=== PATIENT | female | born 1960 | race Caucasian/White ===

== ENCOUNTER → 2019-09-08 14:15 | Outpatient (BNVA) | payer BC, SELFPAY | PROVIDERS: Family Provider Family Medicine; Visit Provider Obstetrics & Gynecology | DX: Z12.4 Encounter for screening for malignant neoplasm of cervix (principal) | CPT/HCPCS: 88175 ==

== ENCOUNTER 2020-05-04 08:57 | Outpatient (CLI) | payer BC, SELFPAY ==
--- NOTE | 2020-05-04 09:01 | MM_ITS ---
WS: [id number] BILATERAL DIGITAL SCREENING MAMMOGRAPHY WITH CAD CLINICAL INFORMATION: SCREENING HISTORY: Screening mammogram. No current complaints. COMPARISON: TECHNIQUE: Bilateral CC and MLO views. FINDINGS: The breasts are composed of heterogeneous fibroglandular density tissue, which can limit the detectio n of small underlying mass lesions. No suspicious mass, asymmetry, calcifications, or architectural d istortion. No evidence of malignancy. Vascular calcification. Punctate calcification right breast. Ti ny punctate calcifications left breast are similar in appearance. Partially visualized surgical clips right axilla. MM/[id number] IMPRESSION: BI-RADS: 2-Benign FOLLOW UP: 1 Year Follow-up Recommend return to annual screening mammography.
== END 2020-05-04 08:58 | disposition home or self-care (01) ==
LOC: RADSHAW 09:00
PROVIDERS: Family Provider Family Medicine; PCP Family Medicine; Visit Provider Family Medicine
DX: Z12.31 Encounter for screening mammogram for malignant neoplasm of breast (principal)
CPT/HCPCS: 77067

== ENCOUNTER 2021-08-01 09:49 | Outpatient (CLI) | payer BC, SELFPAY ==
--- NOTE | 2021-08-01 09:55 | MM_ITS ---
WS: [id number] BILATERAL SCREENING 3D TOMOSYNTHESIS DIGITAL MAMMOGRAM WITH CAD HISTORY: SCREENING COMPARISON: 05/04/2020, 03/26/2019, 02/18/2018, 09/05/2016 and 09/01/2015 Bilateral CC and MLO views submitted. Computer aided detection analyzed. Breast composition: The breasts are heterogeneously dense, which may obscure small masses. No suspici ous masses, microcalcifications or architectural distortion. There are numerous calcifications within each breast. These calcifications have been present on prior studies with only minimal increase in n umber. Majority of these calcifications have lucent centers suggesting benignity. Biopsy clip in the posterior superior RIGHT breast. There is a stable nodule measuring 7 mm in the central LEFT breast. MM/[id number] IMPRESSION: BI-RADS: 2-Benign FOLLOW UP: 1 Year Follow-up
== END 2021-08-01 09:50 | disposition home or self-care (01) ==
PROVIDERS: Family Provider Family Medicine; PCP Family Medicine; Visit Provider Obstetrics & Gynecology
DX: Z12.31 Encounter for screening mammogram for malignant neoplasm of breast (principal); N63.0 Unspecified lump in unspecified breast
CPT/HCPCS: 77063; 77067

== ENCOUNTER 2022-09-16 07:32 | Outpatient (CLI) | payer BC, SELFPAY ==
--- NOTE | 2022-09-16 07:37 | MM_ITS ---
WS: [id number] BILATERAL SCREENING DIGITAL TOMOSYNTHESIS MAMMOGRAM WITH CAD HISTORY: SCREENING COMPARISON: 09/01/2015, 09/05/2016, 08/01/2021 and 05/04/2020 Bilateral CC and MLO views with tomosynthesis and synthetic mammography submitted. Computer aided det ection analyzed. Breast composition: There are scattered areas of fibroglandular density. No suspicious masses, microc alcifications or architectural distortion. Prior biopsy clips in the posterior central RIGHT breast. There are numerous bilateral calcifications which have been present over multiple years, noted on tonya or examinations from 2017. These calcifications have been relatively stable. There is no one discrete area is more concerning than another. No distortion of the soft tissues. MM/[id number] IMPRESSION: BI-RADS: 2-Benign FOLLOW UP: 1 Year Follow-up There are extensive calcifications within each breast which are relatively stab le. There is no one group of calcifications more concerning than another. Consi dering the patient's family history of breast cancer additional imaging with MR I may be of benefit. Some of these calcifications have been biopsied in the pas t and are negative.
== END 2022-09-16 07:33 | disposition home or self-care (01) ==
PROVIDERS: PCP Family Medicine; Visit Provider Family Medicine
DX: Z12.31 Encounter for screening mammogram for malignant neoplasm of breast (principal)
CPT/HCPCS: 77063; 77067

== ENCOUNTER 2023-09-25 07:53 | Outpatient (CLI) | payer BC, SELFPAY ==
--- NOTE | 2023-09-25 08:01 | MM_ITS ---
WS: [id number] SCREENING DIGITAL BREAST TOMOSYNTHESIS MAMMOGRAM WITH CAD HISTORY: SCREENING COMPARISON: 04/16/2013, 04/20/2014, 09/16/2022, 08/01/2021 Bilateral CC and MLO with tomosynthesis and synthetic mammography submitted. Computer aided detection analyzed. Breast composition: The breasts are heterogeneously dense, which may obscure small masses. There are extensive calcifications in the LEFT breast. These have been present on prior studies. Today's study seen on the LEFT MLO projection there may be a ductal distribution. These calcifications have remaine d relatively stable over years. Suggest additional magnification views. Stereotactic biopsy may be ne cessary. Prior biopsy clip RIGHT breast. No suspicious mass or calcification RIGHT breast. MM/[id number] IMPRESSION: BI-RADS: 0-Incomplete: Need additional imaging evaluation FOLLOW UP: Need Additional Imaging LEFT BREAST: Magnification views of suspicious calcification CC and MLO. True M L. These LEFT breast calcifications have been present for years but the clustering appear slightly more prominent towards the upper outer quadrant. Recommend add itional magnification views.
== END 2023-09-25 07:54 | disposition home or self-care (01) ==
LOC: RAD 07:53
PROVIDERS: PCP Family Medicine; Visit Provider Family Medicine
DX: Z12.31 Encounter for screening mammogram for malignant neoplasm of breast (principal); R92.333 Mammographic heterogeneous density, bilateral breasts; R92.1 Mammographic calcification found on diagnostic imaging of breast
CPT/HCPCS: 77063; 77067

== ENCOUNTER 2023-11-03 09:06 | Outpatient (CLI) | payer BC, SELFPAY ==
--- NOTE | 2023-11-03 10:15 | MM_ITS ---
WS: [id number] ADDITIONAL VIEWS LEFT MAMMOGRAM WITH DIGITAL BREAST TOMOSYNTHESIS. HISTORY: ABNORMAL MAMMOGRAM COMPARISON: 09/25/2023, 09/16/2022, 08/01/2021 Magnification views LEFT breast in CC, MLO projections and true ML submitted with digital breast meagan synthesis and SM. There is a large number of calcifications in the upper outer quadrant of the LEFT breast. Several of these calcifications been present on prior studies. These are predominantly round calcifications whic h are benign. There are a few more scattered irregular and possible ductal distribution of calcificat ions. No mass. No distortion. MM/[id number] IMPRESSION: BI-RADS: 4-Suspicious Finding-Biopsy Should Be Considered FOLLOW UP: Biopsy Recommended Stereotactic biopsy is recommended of the calcifications in the upper outer karson drant of the LEFT breast. Some of these calcifications have been present on tonya or studies. The number is increased and some of these are along the duct distri bution. Biopsy should be obtained at this time.
== END 2023-11-03 09:07 | disposition home or self-care (01) ==
LOC: RAD 09:07
PROVIDERS: PCP Family Medicine; Visit Provider Family Medicine
DX: R92.8 Other abnormal and inconclusive findings on diagnostic imaging of breast (principal); R92.1 Mammographic calcification found on diagnostic imaging of breast
CPT/HCPCS: 77061; G0279

== ENCOUNTER 2023-11-25 12:42 | Outpatient (CLI) | payer BC, SELFPAY ==
--- NOTE | 2023-11-25 12:49 | XR_ITS ---
WS: [id number] SCREENING DEXA SCAN [facility] CLINICAL INFORMATION: asymptomatic postmenopausal COMPARISON: None. FINDINGS: The L1-L4 bone mineral density measures 1.238 g/cm2. This corresponds to a T score score of 0.5 and Z score of 1.9. Left femoral neck bone mineral density measures 1.063 g/cm2. This corresponds to a T score of 0.4 and Z score of 1.5. Right femoral neck bone mineral density measures 1.010 g/cm2. This corresponds to a T score 0.0of and Z score of 1.1. Mean femoral neck bone mineral density measures 1.036 g/cm2. This corresponds to a T score of 0.2 and Z score of 1.3. XR/XR DEXA axial skeleton* [id number] IMPRESSION: Normal bone mineralization. Patient's FRAX calculated 10 year probability for major osteoporotic fracture i s 6.5% and osteoporotic hip fracture is 0.2%.
== END 2023-11-25 12:43 | disposition home or self-care (01) ==
LOC: RAD 12:43
PROVIDERS: Visit Provider Internal Medicine
DX: Z78.0 Asymptomatic menopausal state (principal)
CPT/HCPCS: 77080